=== PATIENT | male | born 1990 | race Caucasian/White ===

== ENCOUNTER 2017-12-06 18:38 | Emergency (ER) | payer OTHER ==
[2017-12-06] MEDS: OLANZAPINE 10 MG VIAL IM (19:28)
[2017-12-06 19:34] LABS: ADD MAN DIFF? NO
[2017-12-06 19:37] LABS: BASOPHILS % 0.6 % (0.0-2.0); EOSINOPHILS % 0.4 % (0.0-7.0); HEMATOCRIT 40.4 % (42.0-52.0); HEMOGLOBIN 14.3 g/dl (14.0-18.0); LYMPHOCYTES # 0.9 10^3/ul (0.8-2.9); LYMPHOCYTES % 12.7 % (15.0-51.0); MEAN CORPUSCULAR HEMOGLOBIN 31.6 pg (29.0-33.0); MEAN CORPUSCULAR HGB CONC 35.4 g/dl (32.0-37.0); MEAN CORPUSCULAR VOLUME 89.4 fl (82.0-101.0); MEAN PLATELET VOLUME 10.6 fl (7.4-10.4); MONOCYTE # 0.7 10^3/ul (0.3-0.9); NEUTROPHIL # 5.6 10^3/ul (1.6-7.5); NEUTROPHILS % 76.5 % (39.0-77.0); PLATELET COUNT 189 10^3/UL (140-415); RED BLOOD COUNT 4.52 10^6/ul (4.70-6.10); RED CELL DISTRIBUTION WIDTH 12.9 % (11.5-14.5)
[2017-12-06 19:37] LABS: WHITE BLOOD COUNT 7.3 10^3/ul (4.8-10.8)
[2017-12-06 19:55] LABS: ALANINE AMINOTRANSFERASE 57 IU/L (13-69); ALBUMIN 4.4 g/dl (3.3-4.9); ALBUMIN/GLOBULIN RATIO 1.41; ALKALINE PHOSPHATASE 97 IU/L (42-121); ANION GAP 15 (8-16); ASPARTATE AMINO TRANSFERASE 34 IU/L (15-46); BILIRUBIN,INDIRECT 0.3 mg/dl (0-1.1); BILIRUBIN,TOTAL 0.3 mg/dl (0.2-1.3); BLOOD UREA NITROGEN 14 mg/dl (7-20); CALCIUM 9.2 mg/dl (8.4-10.2); CARBON DIOXIDE 25 mmol/L (21-31); CHLORIDE 104 mmol/L (97-110); CREATININE 0.82 mg/dl (0.61-1.24); GLUCOSE 136 mg/dl (70-220); SODIUM 140 mmol/L (135-144); TOTAL PROTEIN 7.5 g/dl (6.1-8.1)
[2017-12-06 19:56] LABS: ACETAMINOPHEN < 10.0 ug/ml (10.0-30.0)
[2017-12-06 19:57] LABS: ETHANOL < 10.0 mg/dl; SALICYLATE < 1.0 mg/dl (5.0-30.0)
[2017-12-06 20:44] LABS: ADD UMIC NO; UR ASCORBIC ACID NEGATIVE (NEGATIVE); UR BILIRUBIN (Dip) NEGATIVE (NEGATIVE); UR BLOOD (Dip) NEGATIVE (NEGATIVE); UR CLARITY CLEAR (CLEAR); UR COLOR YELLOW (YELLOW); UR GLUCOSE (Dip) NEGATIVE (NEGATIVE); UR KETONES (Dip) NEGATIVE (NEGATIVE); UR LEUKOCYTE ESTERASE (Dip) NEGATIVE Leu/ul (NEGATIVE); UR NITRITE (Dip) NEGATIVE (NEGATIVE); UR SPECIFIC GRAVITY (Dip) 1.011 (1.003-1.030); UR TOTAL PROTEIN (Dip) NEGATIVE (NEGATIVE); UR UROBILINOGEN (Dip) NEGATIVE (NEGATIVE)
[2017-12-06 21:05] LABS: AMPHETAMINE/METHAMPHETAMINE Negative (NEGATIVE); BARBITURATES Negative (NEGATIVE); BENZODIAZEPINES Negative (NEGATIVE); CANNABINOIDS Negative (NEGATIVE); COCAINE Negative (NEGATIVE); OPIATES Negative (NEGATIVE)
== END 2017-12-07 16:42 ==
LOC: E/R 18:38
DX: F20.9 Schizophrenia, unspecified (principal)
CPT/HCPCS: 36415; 80053; 80306; 80307; 81003; 85025; 96372; 99285-25

== ENCOUNTER 2017-12-22 23:39 | Emergency (ER) | payer OTHER ==
[2017-12-23] MEDS: KETOROLAC 60 MG INJ IM (02:03)
[2017-12-23] MEDS: ONDANSETRON (ODT) 4 MG TAB ODT (02:03)
== END 2017-12-23 03:40 | disposition home or self-care (01) ==
LOC: FTE 23:39
DX: R51 Headache (principal)
CPT/HCPCS: 87400; 96372; 99284-25

== ENCOUNTER 2018-01-04 18:57 | Emergency (ER) | payer OTHER ==
[2018-01-04 23:54] LABS: ADD MAN DIFF? NO
[2018-01-04 23:55] LABS: BASOPHIL # 0.1 10^3/ul (0.0-0.1); BASOPHILS % 0.6 % (0.0-2.0); EOSINOPHILS # 0.1 10^3/ul (0.0-0.5); EOSINOPHILS % 0.7 % (0.0-7.0); HEMATOCRIT 41.9 % (42.0-52.0); HEMOGLOBIN 15.1 g/dl (14.0-18.0); LYMPHOCYTES # 1.3 10^3/ul (0.8-2.9); MEAN CORPUSCULAR HEMOGLOBIN 31.6 pg (29.0-33.0); MEAN CORPUSCULAR VOLUME 87.7 fl (82.0-101.0); MEAN PLATELET VOLUME 10.6 fl (7.4-10.4); MONOCYTE # 0.9 10^3/ul (0.3-0.9); MONOCYTES % 9.6 % (0.0-11.0); NEUTROPHIL # 7.2 10^3/ul (1.6-7.5); NEUTROPHILS % 75.3 % (39.0-77.0); PLATELET COUNT 200 10^3/UL (140-415); RED BLOOD COUNT 4.78 10^6/ul (4.70-6.10); RED CELL DISTRIBUTION WIDTH 12.8 % (11.5-14.5)
[2018-01-04 23:55] LABS: WHITE BLOOD COUNT 9.6 10^3/ul (4.8-10.8)
[2018-01-05 00:14] LABS: ALANINE AMINOTRANSFERASE 53 IU/L (13-69); ALBUMIN 4.6 g/dl (3.3-4.9); ALBUMIN/GLOBULIN RATIO 1.24; ALKALINE PHOSPHATASE 89 IU/L (42-121); ANION GAP 19 (8-16); ASPARTATE AMINO TRANSFERASE 35 IU/L (15-46); BILIRUBIN,INDIRECT 0.4 mg/dl (0-1.1); BILIRUBIN,TOTAL 0.4 mg/dl (0.2-1.3); BLOOD UREA NITROGEN 19 mg/dl (7-20); CALCIUM 9.5 mg/dl (8.4-10.2); CARBON DIOXIDE 25 mmol/L (21-31); CHLORIDE 106 mmol/L (97-110); CREATININE 0.82 mg/dl (0.61-1.24); GLUCOSE 106 mg/dl (70-220); LIPASE 80 U/L (23-300); POTASSIUM 3.9 mmol/L (3.5-5.1); SODIUM 146 mmol/L (135-144); TOTAL PROTEIN 8.3 g/dl (6.1-8.1)
[2018-01-05] MEDS: ONDANSETRON 4 MG INJ IV (00:14)
[2018-01-05] MEDS: LIDOCAINE/MYLANTA 40 ML BTL PO (00:14)
[2018-01-05] MEDS: SOD CHLORIDE 0.9% 1,000 ML IV (00:14)
[2018-01-05] MEDS: FAMOTIDINE 20 MG INJ IV (00:14)
[2018-01-05 02:40] LABS: URINE BLOOD (Dip) POC Negative (NEGATIVE); URINE GLUCOSE (Dip) POC Negative (NEGATIVE); URINE KETONES (Dip) POC Negative (NEGATIVE); URINE LEUKOCYTE EST (Dip) POC Negative (NEGATIVE); URINE NITRITE (Dip) POC Negative (NEGATIVE); URINE TOTAL PROTEIN POC Negative (NEGATIVE)
== END 2018-01-05 03:18 | disposition home or self-care (01) ==
LOC: FTE 18:57
DX: R10.13 Epigastric pain (principal); R10.11 Right upper quadrant pain; R11.10 Vomiting, unspecified
CPT/HCPCS: 76705; 80053; 81003; 83690; 85025; 96361; 96374; 96375; 99285-25

== ENCOUNTER 2018-01-07 23:21 | Emergency (ER) | payer OTHER ==
[2018-01-08] MEDS: LIDOCAINE/MYLANTA 40 ML BTL PO (03:52)
[2018-01-08] MEDS: SOD CHLORIDE 0.9% 1,000 ML IV (03:52)
[2018-01-08] MEDS: FAMOTIDINE 20 MG INJ IV (03:52)
[2018-01-08 03:58] LABS: ADD MAN DIFF? NO
[2018-01-08 04:13] LABS: ADD UMIC NO; UR ASCORBIC ACID NEGATIVE (NEGATIVE); UR BILIRUBIN (Dip) NEGATIVE (NEGATIVE); UR BLOOD (Dip) NEGATIVE (NEGATIVE); UR CLARITY CLEAR (CLEAR); UR COLOR YELLOW (YELLOW); UR GLUCOSE (Dip) NEGATIVE (NEGATIVE); UR KETONES (Dip) NEGATIVE (NEGATIVE); UR LEUKOCYTE ESTERASE (Dip) NEGATIVE Leu/ul (NEGATIVE); UR NITRITE (Dip) NEGATIVE (NEGATIVE); UR SPECIFIC GRAVITY (Dip) 1.028 (1.003-1.030); UR TOTAL PROTEIN (Dip) NEGATIVE (NEGATIVE); UR UROBILINOGEN (Dip) 1+ mg/dL (NEGATIVE)
[2018-01-08 04:16] LABS: BASOPHIL # 0.1 10^3/ul (0.0-0.1); BASOPHILS % 0.7 % (0.0-2.0); EOSINOPHILS % 0.3 % (0.0-7.0); HEMATOCRIT 46.6 % (42.0-52.0); HEMOGLOBIN 16.3 g/dl (14.0-18.0); LYMPHOCYTES # 1.1 10^3/ul (0.8-2.9); LYMPHOCYTES % 10.8 % (15.0-51.0); MEAN CORPUSCULAR HEMOGLOBIN 31.2 pg (29.0-33.0); MEAN CORPUSCULAR VOLUME 89.3 fl (82.0-101.0); MEAN PLATELET VOLUME 10.6 fl (7.4-10.4); MONOCYTE # 0.8 10^3/ul (0.3-0.9); MONOCYTES % 8.2 % (0.0-11.0); NEUTROPHIL # 7.9 10^3/ul (1.6-7.5); NEUTROPHILS % 79.3 % (39.0-77.0); PLATELET COUNT 204 10^3/UL (140-415); RED BLOOD COUNT 5.22 10^6/ul (4.70-6.10)
[2018-01-08 04:18] LABS: ALANINE AMINOTRANSFERASE 68 IU/L (13-69); ALBUMIN 5.2 g/dl (3.3-4.9); ALKALINE PHOSPHATASE 80 IU/L (42-121); ANION GAP 20 (8-16); ASPARTATE AMINO TRANSFERASE 48 IU/L (15-46); BILIRUBIN,INDIRECT 0.6 mg/dl (0-1.1); BILIRUBIN,TOTAL 0.6 mg/dl (0.2-1.3); BLOOD UREA NITROGEN 16 mg/dl (7-20); CALCIUM 9.5 mg/dl (8.4-10.2); CARBON DIOXIDE 27 mmol/L (21-31); CHLORIDE 104 mmol/L (97-110); CREATININE 0.88 mg/dl (0.61-1.24); GLUCOSE 96 mg/dl (70-220); POTASSIUM 4.2 mmol/L (3.5-5.1); SODIUM 147 mmol/L (135-144); TOTAL PROTEIN 9.2 g/dl (6.1-8.1)
== END 2018-01-08 06:20 | disposition home or self-care (01) ==
LOC: E/R 23:21
DX: R10.13 Epigastric pain (principal)
CPT/HCPCS: 80053; 81003; 85025; 96374; 99284-25

== ENCOUNTER 2018-01-17 17:30 | Emergency (ER) | payer OTHER ==
[2018-01-17] MEDS: LIDOCAINE/MYLANTA 40 ML BTL PO (20:34)
[2018-01-17 21:06] LABS: ADD MAN DIFF? NO
[2018-01-17 21:08] LABS: WHITE BLOOD COUNT 7.8 10^3/ul (4.8-10.8)
[2018-01-17 21:08] LABS: BASOPHIL # 0.1 10^3/ul (0.0-0.1); BASOPHILS % 0.9 % (0.0-2.0); EOSINOPHILS % 0.5 % (0.0-7.0); HEMATOCRIT 44.8 % (42.0-52.0); HEMOGLOBIN 15.8 g/dl (14.0-18.0); LYMPHOCYTES # 1.1 10^3/ul (0.8-2.9); LYMPHOCYTES % 14.3 % (15.0-51.0); MEAN CORPUSCULAR HEMOGLOBIN 31.2 pg (29.0-33.0); MEAN CORPUSCULAR HGB CONC 35.3 g/dl (32.0-37.0); MEAN CORPUSCULAR VOLUME 88.5 fl (82.0-101.0); MEAN PLATELET VOLUME 10.7 fl (7.4-10.4); MONOCYTE # 0.9 10^3/ul (0.3-0.9); MONOCYTES % 11.1 % (0.0-11.0); NEUTROPHIL # 5.7 10^3/ul (1.6-7.5); NEUTROPHILS % 72.8 % (39.0-77.0); PLATELET COUNT 213 10^3/UL (140-415); RED BLOOD COUNT 5.06 10^6/ul (4.70-6.10); RED CELL DISTRIBUTION WIDTH 12.6 % (11.5-14.5)
[2018-01-17 21:34] LABS: ALANINE AMINOTRANSFERASE 47 IU/L (13-69); ALBUMIN 4.6 g/dl (3.3-4.9); ALBUMIN/GLOBULIN RATIO 1.21; ALKALINE PHOSPHATASE 68 IU/L (42-121); ANION GAP 18 (8-16); ASPARTATE AMINO TRANSFERASE 30 IU/L (15-46); BILIRUBIN,INDIRECT 0.4 mg/dl (0-1.1); BILIRUBIN,TOTAL 0.4 mg/dl (0.2-1.3); BLOOD UREA NITROGEN 18 mg/dl (7-20); CALCIUM 9.7 mg/dl (8.4-10.2); CARBON DIOXIDE 25 mmol/L (21-31); CHLORIDE 107 mmol/L (97-110); CREATININE 0.92 mg/dl (0.61-1.24); GLUCOSE 90 mg/dl (70-220); LIPASE 67 U/L (23-300); POTASSIUM 4.2 mmol/L (3.5-5.1); SODIUM 146 mmol/L (135-144); TOTAL PROTEIN 8.4 g/dl (6.1-8.1)
== END 2018-01-17 22:41 | disposition home or self-care (01) ==
LOC: FTE 17:30
DX: R10.13 Epigastric pain (principal)
CPT/HCPCS: 36415; 76705; 80053; 83690; 85025; 99284-25

== ENCOUNTER 2018-01-21 14:30 | Emergency (ER) | payer OTHER ==
[2018-01-21 16:47] LABS: ADD MAN DIFF? NO
[2018-01-21] MEDS: ONDANSETRON 4 MG INJ IV (16:48)
[2018-01-21 16:57] LABS: WHITE BLOOD COUNT 6.2 10^3/ul (4.8-10.8)
[2018-01-21 16:57] LABS: BASOPHILS % 0.6 % (0.0-2.0); EOSINOPHILS % 0.2 % (0.0-7.0); HEMATOCRIT 44.1 % (42.0-52.0); HEMOGLOBIN 15.8 g/dl (14.0-18.0); LYMPHOCYTES # 0.6 10^3/ul (0.8-2.9); LYMPHOCYTES % 10.1 % (15.0-51.0); MEAN CORPUSCULAR HEMOGLOBIN 31.3 pg (29.0-33.0); MEAN CORPUSCULAR HGB CONC 35.8 g/dl (32.0-37.0); MEAN CORPUSCULAR VOLUME 87.5 fl (82.0-101.0); MEAN PLATELET VOLUME 10.2 fl (7.4-10.4); MONOCYTE # 0.7 10^3/ul (0.3-0.9); MONOCYTES % 11.1 % (0.0-11.0); NEUTROPHIL # 4.8 10^3/ul (1.6-7.5); NEUTROPHILS % 77.5 % (39.0-77.0); PLATELET COUNT 192 10^3/UL (140-415); RED BLOOD COUNT 5.04 10^6/ul (4.70-6.10); RED CELL DISTRIBUTION WIDTH 12.6 % (11.5-14.5)
[2018-01-21 17:17] LABS: ALANINE AMINOTRANSFERASE 46 IU/L (13-69); ALBUMIN 4.6 g/dl (3.3-4.9); ALBUMIN/GLOBULIN RATIO 1.35; ALKALINE PHOSPHATASE 64 IU/L (42-121); ANION GAP 17 (8-16); ASPARTATE AMINO TRANSFERASE 34 IU/L (15-46); BILIRUBIN,INDIRECT 0.4 mg/dl (0-1.1); BILIRUBIN,TOTAL 0.4 mg/dl (0.2-1.3); BLOOD UREA NITROGEN 11 mg/dl (7-20); CALCIUM 9.3 mg/dl (8.4-10.2); CARBON DIOXIDE 27 mmol/L (21-31); CHLORIDE 106 mmol/L (97-110); CREATININE 0.83 mg/dl (0.61-1.24); GLUCOSE 96 mg/dl (70-220); LIPASE 54 U/L (23-300); POTASSIUM 4.1 mmol/L (3.5-5.1); SODIUM 146 mmol/L (135-144)
[2018-01-21 17:23] LABS: ADD UMIC NO; UR ASCORBIC ACID NEGATIVE (NEGATIVE); UR BACTERIA FEW /HPF (NONE SEEN); UR BILIRUBIN (Dip) NEGATIVE (NEGATIVE); UR BLOOD (Dip) NEGATIVE (NEGATIVE); UR CLARITY SLIGHTLY CLOUDY (CLEAR); UR COLOR YELLOW (YELLOW); UR GLUCOSE (Dip) NEGATIVE (NEGATIVE); UR KETONES (Dip) NEGATIVE (NEGATIVE); UR LEUKOCYTE ESTERASE (Dip) NEGATIVE Leu/ul (NEGATIVE); UR MUCUS FEW /HPF (NONE SEEN); UR NITRITE (Dip) NEGATIVE (NEGATIVE); UR RBC 0 /HPF (0-5); UR SPECIFIC GRAVITY (Dip) 1.027 (1.003-1.030); UR TOTAL PROTEIN (Dip) NEGATIVE (NEGATIVE); UR UROBILINOGEN (Dip) 1+ mg/dL (NEGATIVE); UR WBC 1 /HPF (0-5)
[2018-01-21] MEDS: IOHEXOL 300MG/ML 150 ML BTL (18:52)
[2018-01-21] MEDS: SOD CHLORIDE 0.9% 100 ML (18:52)
== END 2018-01-21 20:06 | disposition home or self-care (01) ==
LOC: FTE 20:06
DX: R10.9 Unspecified abdominal pain (principal); R11.10 Vomiting, unspecified
CPT/HCPCS: 36415; 74177; 80053; 81001; 81003; 83690; 85025; 96374; 99285-25

== ENCOUNTER 2018-07-09 21:26 | Inpatient (IN) | payer OTHER ==
[2018-07-10] MEDS: ONDANSETRON (ODT) 4 MG TAB ODT (00:54)
[2018-07-10 01:08] LABS: ADD MAN DIFF? NO
[2018-07-10 01:18] LABS: ABNORMAL IP MESSAGE 1; BASOPHIL # 0.1 10^3/ul (0.0-0.1); BASOPHILS % 0.4 % (0.0-2.0); EOSINOPHILS % 0.2 % (0.0-7.0); HEMOGLOBIN 15.6 g/dl (14.0-18.0); LYMPHOCYTES # 0.4 10^3/ul (0.8-2.9); LYMPHOCYTES % 2.8 % (15.0-51.0); MEAN CORPUSCULAR HEMOGLOBIN 31.4 pg (29.0-33.0); MEAN CORPUSCULAR HGB CONC 35.5 g/dl (32.0-37.0); MEAN CORPUSCULAR VOLUME 88.5 fl (82.0-101.0); MEAN PLATELET VOLUME 10.3 fl (7.4-10.4); MONOCYTE # 0.9 10^3/ul (0.3-0.9); MONOCYTES % 6.8 % (0.0-11.0); NEUTROPHIL # 11.6 10^3/ul (1.6-7.5); NEUTROPHILS % 89.4 % (39.0-77.0); PLATELET COUNT 206 10^3/UL (140-415); POSITIVE DIFF @See below; RED BLOOD COUNT 4.97 10^6/ul (4.70-6.10); RED CELL DISTRIBUTION WIDTH 13.2 % (11.5-14.5)
[2018-07-10 01:33] LABS: ADD UMIC YES; UR AMORPHOUS CRYSTAL FEW /HPF (NONE SEEN); UR ASCORBIC ACID NEGATIVE (NEGATIVE); UR BILIRUBIN (Dip) NEGATIVE (NEGATIVE); UR BLOOD (Dip) NEGATIVE (NEGATIVE); UR BUDDING YEAST MODERATE /HPF (NONE SEEN); UR CLARITY CLOUDY (CLEAR); UR COLOR AMBER (YELLOW); UR GLUCOSE (Dip) NEGATIVE (NEGATIVE); UR KETONES (Dip) NEGATIVE (NEGATIVE); UR LEUKOCYTE ESTERASE (Dip) NEGATIVE Leu/ul (NEGATIVE); UR NITRITE (Dip) NEGATIVE (NEGATIVE); UR RBC 0 /HPF (0-5); UR RENAL EPITHELIAL CELL FEW /HPF (NONE SEEN); UR SPECIFIC GRAVITY (Dip) 1.023 (1.003-1.030); UR TOTAL PROTEIN (Dip) NEGATIVE (NEGATIVE); UR UROBILINOGEN (Dip) 2+ mg/dL (NEGATIVE); UR WBC 17 /HPF (0-5)
[2018-07-10 01:37] LABS: ALANINE AMINOTRANSFERASE 451 IU/L (13-69); ALBUMIN 4.7 g/dl (3.3-4.9); ALKALINE PHOSPHATASE 180 IU/L (42-121); ANION GAP 15 (8-16); ASPARTATE AMINO TRANSFERASE 558 IU/L (15-46); BILIRUBIN,INDIRECT 1.9 mg/dl (0-1.1); BILIRUBIN,TOTAL 3.1 mg/dl (0.2-1.3); BLOOD UREA NITROGEN 13 mg/dl (7-20); CALCIUM 9.6 mg/dl (8.4-10.2); CARBON DIOXIDE 30 mmol/L (21-31); CHLORIDE 102 mmol/L (97-110); CREATININE 0.82 mg/dl (0.61-1.24); GLUCOSE 122 mg/dl (70-220); LIPASE 290 U/L (23-300); POTASSIUM 3.7 mmol/L (3.5-5.1); SODIUM 143 mmol/L (135-144); TOTAL PROTEIN 9.4 g/dl (6.1-8.1)
[2018-07-10] MEDS: SOD CHLORIDE 0.9% 1,000 ML IV ×3 (02:31→18:41)
[2018-07-10] MEDS: morphine 10 MG INJ IV (02:31)
[2018-07-10] MEDS: metroNIDAZOLE 500 MG/NS (PMX) 100 ML IVPB ×3 (06:28→22:00)
[2018-07-10] MEDS: CIPROFLOXACIN 400MG/D5W 200 ML IVPB ×2 (10:21→20:19)
[2018-07-10] MEDS: HYDROCODONE/APAP (5/325) TAB PO (11:55)
[2018-07-10] MEDS: morphine 2 MG INJ IV ×2 (15:24→22:51)
[2018-07-10] MEDS: MIDAZOLAM 1 MG/ML 2 ML INJ (16:54)
[2018-07-10] MEDS: PROPOFOL 20 ML (16:54)
[2018-07-10] MEDS: FENTAnyl 50 MCG/ML VIAL (16:55)
[2018-07-10 17:10] LABS: HEPATITIS B SURFACE ANTIGEN NEGATIVE (NEGATIVE)
[2018-07-10 17:28] LABS: HEPATITIS B CORE ANTIBODY NEGATIVE (NEGATIVE); HEPATITIS C VIRAL ANTIBODY REACTIVE (NEGATIVE)
[2018-07-10 17:32] LABS: HEPATITIS B SURFACE ANTIBODY POSITIVE (NEGATIVE)
[2018-07-10] MEDS: OLANZAPINE 5 MG TAB PO (18:31)
[2018-07-10] MEDS: DIVALPROEX (EC) 500 MG TAB PO ×2 (18:34→20:19)
[2018-07-10] MEDS: PANTOPRAZOLE 40 MG INJ IV (18:35)
[2018-07-10] MEDS: ONDANSETRON 4 MG INJ IV (22:50)
[2018-07-11] MEDS: HYDROCODONE/APAP (5/325) TAB PO (00:07)
[2018-07-11] MEDS: morphine 2 MG INJ IV ×2 (03:17→09:10)
[2018-07-11] MEDS: ACETAMINOPHEN 325 MG TAB PO ×2 (03:17→10:37)
[2018-07-11] MEDS ORDERED: ONDANSETRON 4 MG INJ IV ×2 (04:30→16:30)
[2018-07-11] MEDS: SOD CHLORIDE 0.9% 1,000 ML IV ×2 (04:34→21:29)
[2018-07-11] MEDS: ONDANSETRON 4 MG INJ IV ×2 (04:41→09:10)
[2018-07-11] MEDS: PANTOPRAZOLE 40 MG INJ IV ×2 (05:12→19:02)
[2018-07-11] MEDS: metroNIDAZOLE 500 MG/NS (PMX) 100 ML IVPB ×2 (05:13→13:41)
[2018-07-11] MEDS ORDERED: DEXAMETHASONE 4 MG/ML 1 ML INJ (07:00)
[2018-07-11] MEDS ORDERED: METOCLOPRAMIDE 10 MG INJ (07:00)
[2018-07-11 08:02] LABS: ADD MAN DIFF? NO
[2018-07-11] MEDS: CIPROFLOXACIN 400MG/D5W 200 ML IVPB (08:09)
[2018-07-11] MEDS: OLANZAPINE 5 MG TAB PO ×2 (08:10→13:00)
[2018-07-11] MEDS: DIVALPROEX (EC) 500 MG TAB PO ×2 (08:10→20:11)
[2018-07-11 08:14] LABS: WHITE BLOOD COUNT 23.2 10^3/ul (4.8-10.8)
[2018-07-11 08:14] LABS: ABNORMAL IP MESSAGE 1; BASOPHIL # 0.1 10^3/ul (0.0-0.1); BASOPHILS % 0.2 % (0.0-2.0); HEMOGLOBIN 15.5 g/dl (14.0-18.0); LYMPHOCYTES # 0.2 10^3/ul (0.8-2.9); LYMPHOCYTES % 0.9 % (15.0-51.0); MEAN CORPUSCULAR HGB CONC 34.4 g/dl (32.0-37.0); MEAN PLATELET VOLUME 10.9 fl (7.4-10.4); MONOCYTE # 1.5 10^3/ul (0.3-0.9); MONOCYTES % 6.5 % (0.0-11.0); NEUTROPHIL # 21.3 10^3/ul (1.6-7.5); NEUTROPHILS % 91.8 % (39.0-77.0); PLATELET COUNT 198 10^3/UL (140-415); POSITIVE DIFF @See below; RED CELL DISTRIBUTION WIDTH 14.2 % (11.5-14.5)
[2018-07-11 08:35] LABS: INR 1.26; PT RATIO 1.3
[2018-07-11 08:36] LABS: PHOSPHORUS 2.4 mg/dl (2.5-4.9)
[2018-07-11 08:36] LABS: MAGNESIUM 1.6 mg/dl (1.7-2.5)
[2018-07-11 08:39] LABS: ALANINE AMINOTRANSFERASE 546 IU/L (13-69); ALBUMIN 4.2 g/dl (3.3-4.9); ALBUMIN/GLOBULIN RATIO 1.07; ALKALINE PHOSPHATASE 161 IU/L (42-121); ANION GAP 18 (8-16); ASPARTATE AMINO TRANSFERASE 381 IU/L (15-46); BILIRUBIN,INDIRECT 1.9 mg/dl (0-1.1); BILIRUBIN,TOTAL 7.9 mg/dl (0.2-1.3); BLOOD UREA NITROGEN 11 mg/dl (7-20); CALCIUM 9.2 mg/dl (8.4-10.2); CARBON DIOXIDE 21 mmol/L (21-31); CHLORIDE 108 mmol/L (97-110); CREATININE 1.02 mg/dl (0.61-1.24); GLUCOSE 93 mg/dl (70-220); POTASSIUM 3.7 mmol/L (3.5-5.1); SODIUM 143 mmol/L (135-144); TOTAL PROTEIN 8.1 g/dl (6.1-8.1)
[2018-07-11 10:42] LABS: MITOCHONDRIAL TB NEGATIVE (NEGATIVE); SMOOTH MUSCLE AB SCREEN NEGATIVE (NEGATIVE)
[2018-07-11] MEDS: SOD CHLORIDE 0.9% 500 ML IV (10:44)
[2018-07-11] MEDS: INDOMETHACIN 50 MG SUPP PR (15:00)
[2018-07-11] MEDS: MAGNESIUM SULFATE 2 GM/50 ML 50 ML IVPB (15:01)
[2018-07-11 15:38] LABS: HIV 1&2 ANTIBODY NEGATIVE (NEGATIVE)
[2018-07-11] MEDS ORDERED: IOHEXOL 300MG/ML 30 ML BTL (16:10)
[2018-07-11] MEDS ORDERED: LIDOCAINE 2% (SDV) 5 ML INJ (16:23)
[2018-07-11] MEDS ORDERED: PROPOFOL 20 ML (16:23)
[2018-07-11] MEDS ORDERED: MIDAZOLAM 1 MG/ML 2 ML INJ (16:23)
[2018-07-11] MEDS ORDERED: CEFAZOLIN 1 GM INJ (16:23)
[2018-07-11] MEDS ORDERED: SUCCINYLCHOLINE CHLORIDE 100 MG/5 ML SYG IV (16:23)
[2018-07-11] MEDS ORDERED: ONDANSETRON 4 MG INJ (16:25)
[2018-07-11] MEDS ORDERED: MEPERIDINE 25 MG INJ IV (16:30)
[2018-07-11] MEDS ORDERED: KETOROLAC 30 MG INJ IV (16:30)
[2018-07-11] MEDS ORDERED: LABETALOL HCL 20MG INJ IV (16:30)
[2018-07-11] MEDS ORDERED: PHENYLephrine (100 MCG/ML) 5ML SYG (16:30)
[2018-07-11] MEDS ORDERED: hydrALAzine 20 MG INJ IV (16:30)
[2018-07-11] MEDS ORDERED: FENTAnyl 50 MCG/ML VIAL IV ×2 (16:30)
[2018-07-11] MEDS ORDERED: DIPHENHYDRAMINE 50 MG INJ IV (16:30)
[2018-07-11] MEDS ORDERED: HYDROmorphONE 1 MG/5 ML IV SYRINGE IV ×2 (16:30)
[2018-07-11] MEDS ORDERED: IPRATROPIUM (NEB) 0.5 MG/2.5 ML AMP HHN (16:30)
[2018-07-11 17:05] LABS: LIPASE 19862 U/L (23-300)
[2018-07-11] MEDS ORDERED: PIPER-TAZO 3.375 GM IV (PMX) 100 ML IVPB (18:00)
[2018-07-11 18:17] LABS: ANA SCREEN POSITIVE (NEGATIVE)
[2018-07-11 20:32] LABS: ANA PATTERN NUCLEOLAR
[2018-07-11] MEDS: POTASSIUM PHOSPHATE 20 MEQ in SOD CHLORIDE 0.9% 250 ML IVPB (21:26)
[2018-07-12] MEDS: MEROPENEM 1 GM/50ML(PMX) 50 ML IVPB ×3 (02:16→18:10)
[2018-07-12] MEDS: PANTOPRAZOLE 40 MG INJ IV ×2 (05:59→18:09)
[2018-07-12 06:09] LABS: ADD MAN DIFF? NO
[2018-07-12 06:17] LABS: WHITE BLOOD COUNT 15.4 10^3/ul (4.8-10.8)
[2018-07-12 06:17] LABS: ABNORMAL IP MESSAGE 1; BASOPHILS % 0.1 % (0.0-2.0); HEMATOCRIT 37.8 % (42.0-52.0); HEMOGLOBIN 12.9 g/dl (14.0-18.0); LYMPHOCYTES # 0.4 10^3/ul (0.8-2.9); LYMPHOCYTES % 2.3 % (15.0-51.0); MEAN CORPUSCULAR HEMOGLOBIN 30.7 pg (29.0-33.0); MEAN CORPUSCULAR HGB CONC 34.1 g/dl (32.0-37.0); MEAN PLATELET VOLUME 10.5 fl (7.4-10.4); MONOCYTE # 0.8 10^3/ul (0.3-0.9); NEUTROPHIL # 14.2 10^3/ul (1.6-7.5); NEUTROPHILS % 92.2 % (39.0-77.0); PLATELET COUNT 160 10^3/UL (140-415); POSITIVE DIFF @See below; RED CELL DISTRIBUTION WIDTH 14.2 % (11.5-14.5)
[2018-07-12 06:59] LABS: PHOSPHORUS 2.8 mg/dl (2.5-4.9)
[2018-07-12 06:59] LABS: MAGNESIUM 2.4 mg/dl (1.7-2.5)
[2018-07-12 07:15] LABS: ALANINE AMINOTRANSFERASE 359 IU/L (13-69); ALBUMIN 3.4 g/dl (3.3-4.9); ALBUMIN/GLOBULIN RATIO 0.97; ALKALINE PHOSPHATASE 112 IU/L (42-121); ANION GAP 15 (8-16); ASPARTATE AMINO TRANSFERASE 149 IU/L (15-46); BILIRUBIN,INDIRECT 1.2 mg/dl (0-1.1); BILIRUBIN,TOTAL 1.2 mg/dl (0.2-1.3); BLOOD UREA NITROGEN 16 mg/dl (7-20); CALCIUM 8.2 mg/dl (8.4-10.2); CARBON DIOXIDE 26 mmol/L (21-31); CHLORIDE 107 mmol/L (97-110); CREATININE 0.88 mg/dl (0.61-1.24); GLUCOSE 164 mg/dl (70-220); POTASSIUM 3.8 mmol/L (3.5-5.1); SODIUM 144 mmol/L (135-144); TOTAL PROTEIN 6.9 g/dl (6.1-8.1)
[2018-07-12] MEDS: DIVALPROEX (EC) 500 MG TAB PO ×2 (08:16→20:32)
[2018-07-12] MEDS: OLANZAPINE 5 MG TAB PO ×2 (08:17)
[2018-07-12] MEDS: SOD CHLORIDE 0.9% 1,000 ML IV (11:20)
[2018-07-12] MEDS: FLUCONAZOLE 200 MG TAB PO (14:45)
[2018-07-12] MEDS: SOD CHLORIDE 0.45% 1,000 ML IV ×2 (18:10→20:32)
[2018-07-12] MEDS: HYDROCODONE/APAP (5/325) TAB PO (19:41)
[2018-07-12 19:43] LABS: EBV VIRAL CAPSID AG AB (IGG) >750.00 U/mL; EBV VIRAL CAPSID AG AB (IGM) <36.00 U/mL
[2018-07-13] MEDS: SOD CHLORIDE 0.45% 1,000 ML IV ×6 (01:12→21:09)
[2018-07-13] MEDS: MEROPENEM 1 GM/50ML(PMX) 50 ML IVPB ×3 (01:16→18:13)
[2018-07-13] MEDS: PANTOPRAZOLE 40 MG INJ IV ×2 (05:53→18:10)
[2018-07-13 06:14] LABS: ADD MAN DIFF? NO
[2018-07-13 06:28] LABS: BASOPHILS % 0.4 % (0.0-2.0); EOSINOPHILS # 0.2 10^3/ul (0.0-0.5); EOSINOPHILS % 2.2 % (0.0-7.0); HEMATOCRIT 40.9 % (42.0-52.0); HEMOGLOBIN 14.1 g/dl (14.0-18.0); LYMPHOCYTES # 1.1 10^3/ul (0.8-2.9); LYMPHOCYTES % 11.1 % (15.0-51.0); MEAN CORPUSCULAR HEMOGLOBIN 31.5 pg (29.0-33.0); MEAN CORPUSCULAR HGB CONC 34.5 g/dl (32.0-37.0); MEAN CORPUSCULAR VOLUME 91.5 fl (82.0-101.0); MEAN PLATELET VOLUME 10.7 fl (7.4-10.4); MONOCYTE # 0.9 10^3/ul (0.3-0.9); MONOCYTES % 8.9 % (0.0-11.0); NEUTROPHIL # 7.4 10^3/ul (1.6-7.5); NEUTROPHILS % 76.8 % (39.0-77.0); PLATELET COUNT 180 10^3/UL (140-415); RED BLOOD COUNT 4.47 10^6/ul (4.70-6.10); RED CELL DISTRIBUTION WIDTH 14.6 % (11.5-14.5)
[2018-07-13 06:28] LABS: WHITE BLOOD COUNT 9.7 10^3/ul (4.8-10.8)
[2018-07-13 06:53] LABS: LIPASE 415 U/L (23-300)
[2018-07-13] MEDS: ACETAMINOPHEN 325 MG TAB PO (07:35)
[2018-07-13] MEDS: OLANZAPINE 5 MG TAB PO (08:20)
[2018-07-13] MEDS: LORAZEPAM 1 MG TAB PO (09:44)
[2018-07-13] MEDS: DIVALPROEX (EC) 500 MG TAB PO ×2 (10:16→21:09)
[2018-07-13] MEDS: QUETIAPINE 25 MG TAB PO ×2 (13:06→21:09)
[2018-07-13] MEDS: ERGOCALCIFEROL 50,000 UNIT CAP PO (18:10)
[2018-07-14] MEDS: SOD CHLORIDE 0.45% 1,000 ML IV ×4 (01:17→12:52)
[2018-07-14] MEDS: MEROPENEM 1 GM/50ML(PMX) 50 ML IVPB ×2 (02:42→10:05)
[2018-07-14] MEDS: PANTOPRAZOLE 40 MG INJ IV (05:53)
[2018-07-14] MEDS: ACETAMINOPHEN 325 MG TAB PO (05:54)
[2018-07-14 06:17] LABS: ADD MAN DIFF? NO
[2018-07-14 06:33] LABS: BASOPHILS % 0.4 % (0.0-2.0); EOSINOPHILS # 0.2 10^3/ul (0.0-0.5); EOSINOPHILS % 2.5 % (0.0-7.0); HEMATOCRIT 43.1 % (42.0-52.0); HEMOGLOBIN 14.5 g/dl (14.0-18.0); LYMPHOCYTES % 15.1 % (15.0-51.0); MEAN CORPUSCULAR HEMOGLOBIN 30.4 pg (29.0-33.0); MEAN CORPUSCULAR HGB CONC 33.6 g/dl (32.0-37.0); MEAN CORPUSCULAR VOLUME 90.4 fl (82.0-101.0); MEAN PLATELET VOLUME 10.3 fl (7.4-10.4); MONOCYTE # 0.6 10^3/ul (0.3-0.9); MONOCYTES % 8.7 % (0.0-11.0); NEUTROPHIL # 4.9 10^3/ul (1.6-7.5); NEUTROPHILS % 72.3 % (39.0-77.0); PLATELET COUNT 197 10^3/UL (140-415); RED BLOOD COUNT 4.77 10^6/ul (4.70-6.10); RED CELL DISTRIBUTION WIDTH 14.8 % (11.5-14.5)
[2018-07-14 06:33] LABS: WHITE BLOOD COUNT 6.8 10^3/ul (4.8-10.8)
[2018-07-14 07:22] LABS: ANION GAP 14 (8-16); BLOOD UREA NITROGEN 11 mg/dl (7-20); CALCIUM 8.8 mg/dl (8.4-10.2); CARBON DIOXIDE 25 mmol/L (21-31); CHLORIDE 106 mmol/L (97-110); CREATININE 0.78 mg/dl (0.61-1.24); GLUCOSE 115 mg/dl (70-220); POTASSIUM 3.9 mmol/L (3.5-5.1); SODIUM 141 mmol/L (135-144)
[2018-07-14] MEDS: DIVALPROEX (EC) 500 MG TAB PO (08:13)
[2018-07-14] MEDS: OLANZAPINE 5 MG TAB PO (08:13)
[2018-07-14] MEDS: QUETIAPINE 25 MG TAB PO (08:13)
[2018-07-14 11:00] LABS: ALANINE AMINOTRANSFERASE 235 IU/L (13-69); ALBUMIN 3.5 g/dl (3.3-4.9); ALKALINE PHOSPHATASE 110 IU/L (42-121); ASPARTATE AMINO TRANSFERASE 105 IU/L (15-46); BILIRUBIN,INDIRECT 0.5 mg/dl (0-1.1); BILIRUBIN,TOTAL 0.5 mg/dl (0.2-1.3)
[2018-07-14 18:05] LABS: CMV DNA QL SOURCE WHOLE BLOOD
== END 2018-07-14 17:57 | disposition home or self-care (01) | DRG 871 ==
LOC: 6WM 07-11 11:32 → FTE 21:26 → 2NE 07-10 02:21
PROC: 0DB38ZX Excision of Lower Esophagus, Via Natural or Artificial Opening Endoscopic, Diagnostic (ICD-10-PCS; principal; 2018-07-10 16:08)
PROC: 0DB78ZX Excision of Stomach, Pylorus, Via Natural or Artificial Opening Endoscopic, Diagnostic (ICD-10-PCS; 2018-07-10 16:08)
PROC: 0DB68ZX Excision of Stomach, Via Natural or Artificial Opening Endoscopic, Diagnostic (ICD-10-PCS; 2018-07-10 16:08)
PROC: 0FJB8ZZ Inspection of Hepatobiliary Duct, Via Natural or Artificial Opening Endoscopic (ICD-10-PCS; 2018-07-10 16:08)
PROC: BF10YZZ Fluoroscopy of Bile Ducts using Other Contrast (ICD-10-PCS; 2018-07-10 16:08)
DX: A41.9 Sepsis, unspecified organism (principal); K85.90 Acute pancreatitis without necrosis or infection, unspecified; K22.10 Ulcer of esophagus without bleeding; N39.0 Urinary tract infection, site not specified; Z68.41 Body mass index [BMI] 40.0-44.9, adult; E66.01 Morbid (severe) obesity due to excess calories; K29.60 Other gastritis without bleeding; K76.0 Fatty (change of) liver, not elsewhere classified; K83.8 Other specified diseases of biliary tract; F41.9 Anxiety disorder, unspecified; F20.9 Schizophrenia, unspecified; F22 Delusional disorders; F79 Unspecified intellectual disabilities
CPT/HCPCS: 36415; 71045; 74181; 74330; 76705; 80048; 80053; 80076; 81001; 82652; 82787; 83690; 83735; 84100; 85025; 85610; 86038; 86255; 86376; 86664; 86703; 86704; 86706; 86708; 86709; 86803; 87040; 87340; 87496; 88305; 88312; 88313; 99285-25